=== PATIENT | male | born 1950 | race Caucasian/White ===

== ENCOUNTER → 2018-09-02 11:02 | Outpatient (CLI) | payer MEDICARE, OTHER, SELFPAY ==
--- NOTE | 2018-09-02 | DI.CT.S_ITS ---
PROCEDURE: CT HEAD/BRAIN WO CON INDICATIONS: EPITAXIS WITH ATYPICAL EYE PAIN TECHNIQUE: Noncontrast 4.5 mm thick angled axial sections acquired from the foramen magnum to the vertex, with coronal and sagittal reformats. For radiation dose reduction, the following was used: automated exposure control, adjustment of mA and/or kV according to patient size. COMPARISON: None. FINDINGS: Image quality: Excellent. CSF spaces: Basal cisterns are patent. No extra-axial fluid collections. The ventricles are symmetric in size and shape. Brain: No intracranial bleeds or masses. There is cerebral volume loss for age, with resultant ventricular and sulcal prominence. There are periventricular and deep white matter chronic small vessel ischemic changes. There is intracranial internal carotid artery atherosclerosis. Skull and face: Calvarium and visualized facial bones appear intact, without suspicious lesions. Sinuses: Mucoperiosteal thickening within the right maxillary sinus is present. Visualized sinuses and mastoids are otherwise clear. IMPRESSION: 1. No acute intracranial abnormality. 2. Mild volume loss and small vessel ischemic disease. 3. Chronic right maxillary sinus disease. Dictated by: James Dias M.D. on 09/02/2018 at 11:44 Approved by: James Dias M.D. on 09/02/2018 at 11:45
--- NOTE | 2018-09-02 | DI.CT.S_ITS ---
PROCEDURE: CT SINUS SCREEN WO CON INDICATIONS: EPITAXIS WITH ATYPICAL EYE PAIN TECHNIQUE: Noncontrast 3.0 mm axial images acquired from the frontal sinuses to the mid-sella, with coronal and sagittal reformats. For radiation dose reduction, the following was used: automated exposure control, adjustment of mA and/or kV according to patient size. COMPARISON: None. FINDINGS: Image quality: Excellent. 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 Moderate mucosal thickening noted in the right maxillary sinus. Minimal mucosal thickening noted in the floor of the left maxillary sinus. No air-fluid levels are identified. The osteomeatal units are patent bilaterally. There is diffuse bony wall thickening involving the right maxillary sinus no osseous erosions are osseous remodeling. Nasal septum is slightly deviated to the left. There is a small right cresencio bullosa. No paradoxical turbinates. Type II cribriform plate is noted. No frontal recess cells identified. The anterior ethmoid artery notches are protected bilaterally. Sphenoid pneumatization pattern is similar complete. The sphenoid intersinus septum is deviated to the right but does not attach to the osseous optic canal. Type II right optic canal is noted. Type I left optic canal is noted. IMPRESSION: 1. Moderate chronic right and mild chronic left maxillary sinusitis. 2. Variant paranasal sinus anatomy as described above. Dictated by: Yadira Merdano MD, PhD on 09/02/2018 at 11:55 Approved by: Yadira Medrano MD, PhD on 09/02/2018 at 12:14
== END ==
PROVIDERS: Family Provider Family Medicine Geriatric Medicine; PCP Family Medicine Geriatric Medicine; Visit Provider Family Medicine Geriatric Medicine
DX: H57.10 Ocular pain, unspecified eye (principal); R04.0 Epistaxis; J32.0 Chronic maxillary sinusitis; J34.2 Deviated nasal septum; J34.3 Hypertrophy of nasal turbinates
CPT/HCPCS: 70450; 70486

== ENCOUNTER 2019-07-22 09:47 | Day surgery (SDC) | payer MEDICARE, OTHER, SELFPAY ==
--- NOTE | 2019-07-18 13:54 | PM.PREOP ---
Pre-operative Note Interval Note History & Physical reviewed/Exam performed by Physician: Yes Changes to H&P: No H&P completed within 30 days and has changed as indicated here:: He stops finasteride for surgery in his blood pressure slightly elevated over his usual today. He will resume this again tomorrow.
--- NOTE | 2019-07-18 13:55 | P.OP_ITS ---
Operative Date/Time/Diagnoses Date of procedure: 07/22/19 Time of procedure: 11:45 Procedure & Clinicians Procedure: Preoperative diagnoses: 1. Left advanced nuclear sclerotic cataract 2. Astigmatism which is to be corrected with a toric intraocular lens implant. 3. 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 4. Status post LASIK surgery. 5. Hypertension. 6. Pterygium Postoperative diagnoses: 1. Cataract removal with phacoemulsification with toric posterior chamber intraocular lens implant placed. Procedure: Phacoemulsification with posterior chamber toric intraocular lens implant . Surgeon: Ashia Liao MD Complications: None Specimen: None Implant: ZCT 150 +20.5 [place] 109 Blood loss: None Anesthesia: Retrobulbar with monitored standby Description of procedure: Patient presents with a complaint of decreased vi riddhi due to cataract which is affecting activities of daily living. He has a large myopic shift reducing his distance and near vision and has had previous LASIK with distance vision. He was recently started on 2 and at medications which could cause floppy iris syndrome. The patient wants surgery to improve vision and astigmatism. The patient was taken to the operating room and proparacaine drops placed. Indelible ink velasquez were placed at the 90 and 180 degree meridian. The patient was placed on the operating room table and given IV sedation. A retrobulbar block insert consisting of 6 cc of 2% xylocaine without epinephrine mixed half and half with 0.5% Marcaine with 1 cc of hyaluronidase added is placed between the medial and lateral 1/3 of the inferior orbital rim. The eye is manually massaged for 30 sec, prepped using Betadine solution, and draped in the usual sterile fashion. Temporal approach was made, a 1 mm side-port incision was made 90? from the proposed corneal wound. Phenylephrine 1.5% mixed with 1% xylocaine 0.2 cc was placed into the anterior chamber. Viscoat followed by Ericka was then placed. A 2.6 mm clear incision with a 2.6 mm blade was placed at the 170 degree meridian. A 360 degree capsulorrhexis style capsulotomy was then performed with a cystitome needle on a Healon. Hydrodelineation and hydrodissection were performed. The phacoemulsification unit is introduced, and sculpting used to groove the central lens. It is then removed in chopping mode. Epi nucleus is removed with epinuclear mode and irrigation aspiration was used to remove the peripheral cortex. The nucleus was very dense. The posterior capsule is polished. The intraocular lens is selected, inspected, power confirmed, and placed in the posterior chamber at the desired meridian of 109?. The pupil was not constricted. The wound was stromally hydrated and tested for leaks, there was none and it was left sutureless. Vigamox 0.1 cc was placed into the anterior chamber. Kenalog 0.2 cc was placed in the superior subconjunctival space. A drop of antibiotic and was placed and the eye was patched and shielded. The patient was stable and returned to the recovery room in excellent condition. Dictated by: Ashia Liao MD Copy to: [facility]
[2019-07-22 10:50] VITALS: BP 166/91; PULSE 70; RESP 15; TEMP 36.4
[2019-07-22] MEDS: CATARACT EYE COMPOUND (10 DROPS/SYRINGE) 3 DROPS EYE-OP (11:00)
[2019-07-22] MEDS: PROPARACAINE 0.5% OPHTH SOL 2 DROPS EYE-OP ×2 (11:04→13:10)
[2019-07-22 11:09] VITALS: BMI 29.7
[2019-07-22] MEDS: PHENYLEPHRINE/LIDOCAINE VIAL (OR) 0.2 ML EYE-OP (13:06)
[2019-07-22] MEDS: LIDOCAINE 2% 4 ML, BUPIVACAINE 0.5% (PF) 4 ML, HYALURONIDASE 150 UNIT INJ (13:06)
[2019-07-22] MEDS: ERYTHROMYCIN OPHTH 1 GM OINT 1 APPLIC EYE-LEFT (13:07)
[2019-07-22] MEDS: TRIAMCINOLONE 50 MG/5 ML VIAL INJ (13:08)
[2019-07-22] MEDS: MOXIFLOXACIN INJ 5 MG/ML VIAL EYE-OP (13:08)
[2019-07-22] MEDS: HYALURONATE SODIUM 10 MG/ML SYRINGE INJ (13:09)
[2019-07-22] MEDS: CHONDROIDTIN/SOD HYALURONATE 1.05 ML SYRINGE INTRAOCULA (13:09)
[2019-07-22] MEDS: BALANCED SALT IRRIG SOLN NO.2 500 ML, EPINEPHrine 1 MG IRR (13:11)
[2019-07-22 13:48] VITALS: BP 159/93; PULSE 68; RESP 16; TEMP 36.1; O2SAT 98
== END 2019-07-22 13:50 | disposition home or self-care (01) ==
LOC: OR 09:59
PROVIDERS: Family Provider Family Medicine Geriatric Medicine; PCP Family Medicine Geriatric Medicine; Visit Provider Ophthalmology
PROC: (CPT 66984; principal; 2019-07-22 11:45)
DX: H25.12 Age-related nuclear cataract, left eye (principal); H52.202 Unspecified astigmatism, left eye; H21.81 Floppy iris syndrome; I10 Essential (primary) hypertension; H11.009 Unspecified pterygium of unspecified eye
CPT/HCPCS: 66984; J0171; J2704; J3301; J3470; V2787

== ENCOUNTER 2019-08-05 07:58 | Day surgery (SDC) | payer MEDICARE, OTHER, SELFPAY ==
--- NOTE | 2019-08-04 19:29 | PM.PREOP ---
Pre-operative Note Interval Note History & Physical reviewed/Exam performed by Physician: Yes Changes to H&P: No
--- NOTE | 2019-08-05 08:26 | PM.OP.1 ---
Operative Date/Time/Diagnoses Date of procedure: 08/05/19 Time of procedure: 09:45 Procedure & Clinicians Procedure: Preoperative diagnoses: 1. Right nuclear sclerotic cataract 2. Astigmatism which is to be corrected with a toric intraocular lens implant. 3. Status post LASIK 4. Possible floppy iris syndrome due to use of sympathomemetic drugs. Postoperative diagnoses: 1. Cataract removal with phacoemulsification with toric posterior chamber intraocular lens implant placed. Procedure: Phacoemulsification with posterior chamber toric intraocular lens implant. Surgeon: Ashia Liao MD Complications: None Specimen: None Implant: [id number] [place] 045 Blood loss: None Anesthesia: Retrobulbar with monitored standby Description of procedure: Patient presents with a complaint of decreased vision due to cataract which is affecting activities of daily living. The patient wants surgery to improve vision and astigmatism. The patient was taken to the operating room and proparacaine drops placed. Indelible ink velasquez were placed at the 90 and 180 degree meridian. The patient was placed on the operating room table and given IV sedation. A retrobulbar block insert consisting of 6 cc of 2% xylocaine without epinephrine mixed half and half with 0.5% Marcaine with 1 cc of hyaluronidase added is placed between the medial and lateral 1/3 of the inferior orbital rim. The eye is manually massaged for 30 sec, prepped using Betadine solution, and draped in the usual sterile fashion. Temporal approach was made, a 1 mm side-port incision was made 90? from the proposed corneal wound. Phenylephrine 1.5% mixed with 1% xylocaine 0.2 cc was placed into the anterior chamber. Viscoat followed by Ericka was then placed. A 2.6 mm clear incision with a 2.6 mm blade was placed at the 170 degree meridian. A 360 degree capsulorrhexis style capsulotomy was then performed with a cystitome needle on a Healon. Hydrodelineation and hydrodissection were performed. The phacoemulsification unit is introduced, and sculpting used to groove the central lens. It is then removed in chopping mode. Epi nucleus is removed with epinuclear mode and irrigation aspiration was used to remove the peripheral cortex. The posterior capsule is polished. The intraocular lens is selected, inspected, power confirmed, and placed in the posterior chamber at the desired meridian of 45 degrees. The pupil was not constricted. The wound was stromally hydrated and tested for leaks, there was none and it was left sutureless. Vigamox 0.1 cc was placed into the anterior chamber. Kenalog 0.2 cc was placed in the superior subconjunctival space. A drop of antibiotic and was placed and the eye was patched and shielded. The patient was stable and returned to the recovery room in excellent condition. Dictated by: Ashia Liao MD Copy to: [facility]
[2019-08-05] MEDS: PROPARACAINE 0.5% OPHTH SOL 2 DROPS EYE-OP (08:50)
[2019-08-05] MEDS: CATARACT EYE COMPOUND (10 DROPS/SYRINGE) 3 DROPS EYE-OP (08:52)
[2019-08-05 08:55] VITALS: BP 160/91; PULSE 61; RESP 15; TEMP 36.5; O2SAT 97; BMI 29.6
[2019-08-05] MEDS: HYALURONATE SODIUM 10 MG/ML SYRINGE INJ (10:30)
[2019-08-05] MEDS: ERYTHROMYCIN OPHTH 1 GM OINT 1 APPLIC EYE-RIGHT (10:30)
[2019-08-05] MEDS: LIDOCAINE 2% 4 ML, BUPIVACAINE 0.5% (PF) 4 ML, HYALURONIDASE 150 UNIT INJ (10:31)
[2019-08-05] MEDS: MOXIFLOXACIN INJ 5 MG/ML VIAL EYE-OP (10:31)
[2019-08-05] MEDS: BALANCED SALT IRRIG SOLN NO.2 500 ML, EPINEPHrine 1 MG IRR (10:32)
[2019-08-05] MEDS: TRIAMCINOLONE 50 MG/5 ML VIAL INJ (10:33)
[2019-08-05] MEDS: PHENYLEPHRINE/LIDOCAINE VIAL (OR) 0.2 ML EYE-OP (10:34)
[2019-08-05 10:55] VITALS: BP 165/88; PULSE 63; RESP 20; TEMP 36.6; O2SAT 98
== END 2019-08-05 11:10 | disposition home or self-care (01) ==
LOC: OR 08:02
PROVIDERS: Family Provider Family Medicine Geriatric Medicine; PCP Family Medicine Geriatric Medicine; Visit Provider Ophthalmology
PROC: (CPT 66984; principal; 2019-08-05 09:45)
DX: H25.11 Age-related nuclear cataract, right eye (principal); H52.201 Unspecified astigmatism, right eye
CPT/HCPCS: 66984; J0171; J2250; J2704; J3010; J3301; J3470; V2787